=== PATIENT | female | born 1970 | race Caucasian/White ===

== ENCOUNTER 2022-01-10 16:53 | Emergency (ER) | payer MEDICAID ==
[~2022-01-10] VITALS: Ht 170.2 cm; Wt 93.0 kg
[2022-01-10 16:57] VITALS: BP 153/89
[2022-01-10] MEDS ORDERED: IBUP-2213 PO (17:52)
[2022-01-10] MEDS ORDERED: CEPH-588 PO (17:52)
[2022-01-10 18:05] VITALS: BP 153/89
--- NOTE | 2022-01-10 18:05 | NUR ---
NO NURSING INTERVENTIONS PROVIDED
--- NOTE | 2022-01-10 18:06 | NUR ---
Patient discharged with v/s stable. Written and verbal after care instructions ABOUT [employer]ENA[employer] given and explained. Patient alert, oriented and verbalized understanding of instructions. Ambulatory with steady gait. All questions addressed prior to discharge. ID band removed. Patient advised to follow up with PMD. Rx of KEFLEX AND IBUPROFEN given. Patient educated on indication of medication including possible reaction and side effects. Opportunity to ask questions provided and answered.
== END 2022-01-10 18:06 | disposition home or self-care (01) ==
LOC: MED 16:53
DX: L60.0 Ingrowing nail (principal); R03.0 Elevated blood-pressure reading, without diagnosis of hypertension; Z79.1 Long term (current) use of non-steroidal anti-inflammatories (NSAID); Z79.2 Long term (current) use of antibiotics; Z88.8 Allergy status to other drugs, medicaments and biological substances
CPT/HCPCS: 99283

== ENCOUNTER 2023-07-18 14:38 | Emergency (ER) | payer MEDICAID ==
[~2023-07-18] VITALS: Ht 170.2 cm; Wt 89.8 kg
[~2023-07-18 14:38] MED LIST: CEPH-588 PO; IBUP-2213 PO
[2023-07-18 14:59] VITALS: BP 178/86; PULSE 78; RESP 18; TEMP 97.8; O2SAT 100
[2023-07-18] MEDS ORDERED: KETOROLAC 30 MG/ML VIAL IM ONE (15:25)
[2023-07-18] MEDS ORDERED: IBUP-2213 PO (16:35)
[2023-07-18] MEDS ORDERED: ACET-10509 PO (16:35)
[2023-07-18 16:51] VITALS: BP 155/77; PULSE 78; RESP 18; TEMP 97.8; O2SAT 100
== END 2023-07-18 16:52 | disposition home or self-care (01) ==
LOC: MED 14:38
DX: S86.812A Strain of other muscle(s) and tendon(s) at lower leg level, left leg, initial encounter (principal); X58.XXXA Exposure to other specified factors, initial encounter; Y93.89 Activity, other specified; Y92.89 Other specified places as the place of occurrence of the external cause; Y99.8 Other external cause status
CPT/HCPCS: 73502; 73552; 96372; 99284; J1885

== ENCOUNTER 2023-07-25 16:28 | Emergency (ER) | payer MEDICAID ==
[~2023-07-25] VITALS: Ht 170.2 cm; Wt 91.2 kg
[~2023-07-25 16:28] MED LIST changes: +ACET-10509 PO
[2023-07-25 17:00] VITALS: BP 157/78; PULSE 80; RESP 15; TEMP 97.6; O2SAT 100
[2023-07-25] MEDS ORDERED: IBUP-2213 PO (18:17)
[2023-07-25] MEDS ORDERED: ACET-10509 PO (18:17)
== END 2023-07-25 18:22 | disposition home or self-care (01) ==
LOC: MED 16:28
DX: S86.912A Strain of unspecified muscle(s) and tendon(s) at lower leg level, left leg, initial encounter (principal); Z79.899 Other long term (current) drug therapy; Z79.1 Long term (current) use of non-steroidal anti-inflammatories (NSAID); Z79.2 Long term (current) use of antibiotics; Z88.8 Allergy status to other drugs, medicaments and biological substances; X58.XXXA Exposure to other specified factors, initial encounter; Y92.89 Other specified places as the place of occurrence of the external cause; Y93.89 Activity, other specified; Y99.8 Other external cause status
CPT/HCPCS: 99282